=== PATIENT | male | born 1945 | race American Indian/Alaskan Native ===

== ENCOUNTER 2019-03-07 13:52 | Day surgery (SDC) | payer OTHER ==
[2019-03-07] MEDS ORDERED: NACL 0.9% 1000 ML 1,000 ML IV SCH (15:00)
[2019-03-07] MEDS ORDERED: DIPRIVAN 10 MG/ML IV ONE ×2 (16:45→16:46)
--- NOTE | 2019-03-07 17:17 | Operative Report ---
Operative Report Operative Report: Date of procedure: 03/07/2019 Procedure: Esophagogastroduodenoscopy with wire-guided savory dilation of the esophagus, multiple mucosal biopsies of the gastric antrum. Attending physician: Mp Alas MD House Worker General: Mp Alas MD Indication: Patient is a 74 year-old male who presented with a history of dysphagia. An upper endoscopy is done to assess patient so that treatment may be directed based on the findings. Consent: Informed consent was obtained after advising the patient and family regarding nature of this procedure, its indications, potential benefits as well as possible complications including but not limited to bleeding perforation and adverse reaction to medication, infection as well as other cardiopulmonary complications. An informed written and verbal consent was then obtained after due opportunity was provided for questions and answers. Monitoring: Patient was monitored continuously with pulse oximetry and electrocardiographic recordings as well as blood pressure recordings. Vital signs remained stable throughout this procedure with no untoward events. Preoperative assessment: Patient was assessed immediately prior to this procedure for capacity to tolerate monitored anesthesia care and moderate sedation as well as general anesthesia. Patient's ASA classification is 2, Mallampati class is 2, Hyomental distance is 3. Instrument: [employer] video endoscope Medications: Propofol given intravenously in divided doses. For details please refer to anesthesia records. Description of procedure: Patient was placed in the left lateral decubitus position after achieving sedation, the endoscope was introduced into the esophagus under direct vision. It was then advanced beyond the esophagus into the stomach and then beyond the stomach into the duodenum and to the second portion of the duodenum. It was subsequently withdrawn with careful inspection of all mucosal surfaces with the following findings. Findings: Esophagus was very tortuous. There was mid esophageal dilation with no stricture but with distal tapering of the esophagus. This Appearance is very nonspecific. Because of complaints of dysphagia, the esophagus was dilated using wire-guided savory dilator. It was dilated to 45 [place]. There was mild erythema in the gastric antrum. There were a few erosions in the gastric antrum. Biopsies of the antrum were obtained for histopathology. The duodenum was normal to second portion. Impression: Tortuous esophagus with mid esophageal dilation and distal tapering status post wire-guided savory dilation Gastric antral erythema with erosions status post biopsies of the antrum. Plan: Observe patient clinically for improvement Follow pathology report and direct additional treatment based on the pathology report.
--- NOTE | 2019-03-07 17:18 | Discharge Summary ---
Short Stay Discharge Plan Activity: advance as tolerated Weight Bearing Status: Weight Bear as Tolerated Diet: regular Follow up with: [facility] [Primary Care Provider] - 7 Days
[2019-03-07] MEDS ORDERED: ALUM-MAG HYDROX-SIMETH 200-200-20MG/5ML PO PRN (17:42)
[2019-03-07] MEDS ORDERED: INFANTS' GAS RELIEF PO ONE (17:47)
[2019-03-07 18:37] VITALS: BP 147/68
== END 2019-03-07 18:39 | disposition home or self-care (01) ==
LOC: GIO 13:52
PROVIDERS: ATTEND Internal Medicine Gastroenterology
DX: K29.50 Unspecified chronic gastritis without bleeding (principal); K22.2 Esophageal obstruction; R13.19 Other dysphagia; E78.00 Pure hypercholesterolemia, unspecified; G47.30 Sleep apnea, unspecified; Z79.899 Other long term (current) drug therapy; Z79.82 Long term (current) use of aspirin
CPT/HCPCS: 43239; 43248; 88305; 88342; J2704; J7030